=== PATIENT | male | born 1965 | race Caucasian/White ===

== ENCOUNTER 2019-10-07 23:32 | Observation (INO) ==
[2019-10-08] MEDS ORDERED: *HR* Promethazine 25 MG/ML VIAL IVP PRN ×2 (04:06→18:12)
[2019-10-08] MEDS ORDERED: Acetaminophen 325 MG TABLET PO PRN (04:06)
[2019-10-08] MEDS ORDERED: Naloxone 0.4 MG/ML INJ IVP PRN ×2 (04:06→18:12)
[2019-10-08] MEDS ORDERED: Morphine Sulfate 2 MG/ML SYRINGE IVP PRN ×2 (04:17→18:12)
[2019-10-08] MEDS ORDERED: *HR* Dextrose 50 % in Water (Vial) 50 ML VIAL IVP PRN ×2 (04:19→18:12)
[2019-10-08] MEDS ORDERED: Dextrose Gel 15 GM/37.5 ML TUBE PO PRN ×4 (04:19→18:12)
[2019-10-08] MEDS ORDERED: D5% in Water 1,000 ML IVC PRN ×2 (04:19→18:12)
[2019-10-08] MEDS: 0.9 % Sodium Chloride 1,000 ML IVC SCH (04:51)
[2019-10-08 05:24] LABS: Basophils % 0.2 %; Hematocrit 44.7 % (37.5-50.1); Hemoglobin 14.1 g/dL (12.9-16.9); Immature Granulocytes % 0.5 % (0-4); Lymphocytes # 1.3 K/mcL (0.6-4.6); Lymphocytes % 11.7 %; Mean Corpuscular HGB Conc 31.5 g/dL (31.6-35.5); Mean Corpuscular Hemoglobin 29.8 pg (28.0-33.3); Mean Corpuscular Volume 94.5 fL (83.0-100.0); Monocytes # 1.1 K/mcL (0.0-1.3); Neutrophils # 8.5 K/mcL (1.6-8.9); Platelet Count 192 K/mcL (140-400); Red Blood Count 4.73 M/mcL (4.19-5.50); Red Cell Distribution Width 13.1 % (11.5-14.5); Segmented Neutrophils % 77.6 %; White Blood Count 10.9 K/mcL (4.3-11.1)
[2019-10-08 05:43] LABS: Calcium 7.8 mg/dL (8.6-10.3); Chol/HDL Ratio 2.9 (0-4.9); Magnesium 1.8 mg/dL (1.6-2.6); Phosphorous 4.3 mg/dL (2.7-4.5); Potassium 4.7 mEq/L (3.5-5.1)
[2019-10-08 08:24] LABS: Estimated Average Glucose 192 mg/dl
[2019-10-08] MEDS: Insulin LISPRO 300 UNITS/3 ML VIAL SQ SCH ×2 (09:56→20:29)
[2019-10-08] MEDS ORDERED: cefTRIAXone 1,000 MG in 0.9 % Sodium Chloride Mini Bag 100 ML IVPB ONE (12:42)
[2019-10-08] MEDS ORDERED: 0.9 % Sodium Chloride 1,000 ML IVC SCH ×2 (12:43→18:12)
[2019-10-08] MEDS ORDERED: Insulin LISPRO 300 UNITS/3 ML VIAL SQ SCH (12:45)
[2019-10-08] MEDS ORDERED: *HR* FentaNYL (PF) 100 MCG/2 ML VIAL ONE (16:34)
[2019-10-08] MEDS ORDERED: Lidocaine -MPF 2% 2 ML VIAL ONE (16:34)
[2019-10-08] MEDS ORDERED: Dexamethasone 4 MG/ML VIAL ONE (16:34)
[2019-10-08] MEDS ORDERED: *HR* Propofol 200 MG/20 ML VIAL IVP ONE (16:34)
[2019-10-08] MEDS ORDERED: Ondansetron 4 MG/2 ML VIAL ONE (16:34)
[2019-10-08] MEDS ORDERED: Isovue-300 50ML VIAL ONE (16:48)
[2019-10-08] MEDS ORDERED: *HR* PHENYLEPHRINE 1,000 MCG/10 ML SYRINGE IVP ONE (17:19)
[2019-10-08] MEDS ORDERED: *HR* HYDROcodone/Acet 5/325 mg TABLET PO PRN (18:12)
[2019-10-08] MEDS ORDERED: Insulin DETEMIR 100 UNIT/ML X5UNITS SQ SCH ×2 (21:00)
[2019-10-09 05:43] LABS: BUN/Creatinine Ratio 25 (6-26); Blood Urea Nitrogen 29 mg/dL (6-20); Calcium 7.7 mg/dL (8.6-10.3); Carbon Dioxide 25 mEq/L (23-29); Chloride 108 mEq/L (98-107); Glucose 220 mg/dL (70-105); Magnesium 1.8 mg/dL (1.6-2.6); Osmolality,Calculated 299 (280-300); Potassium 4.1 mEq/L (3.5-5.1); Sodium 138 mEq/L (136-145); eGFR For African Americans > 60 (> 60); eGFR For Non-African Americans > 60 (> 60)
[2019-10-09] MEDS: Insulin LISPRO 300 UNITS/3 ML VIAL SQ SCH ×2 (06:44→06:45)
[2019-10-09] MEDS: 0.9 % Sodium Chloride 1,000 ML IVC SCH (06:45)
[2019-10-09 07:17] VITALS: BP 101/67
[2019-10-13 07:50] LABS: Calculi Mass 41 mg
== END 2019-10-09 10:05 | disposition home or self-care (01) ==
LOC: 3ANU → SUATTDRO 10-08 01:44 → 3BNU 10-08 05:53
PROVIDERS: ADMIT Internal Medicine; ATTEND Internal Medicine